=== PATIENT | male | born 1945 ===

== ENCOUNTER 2020-07-02 06:00 | Outpatient (RCR) | payer MEDICARE, SELFPAY | END 2020-07-08 23:59 | disposition home or self-care (01) | LOC: GPT 06:00 | PROVIDERS: PCP Family Medicine; Referring Provider Nurse Practitioner Family; Visit Provider Nurse Practitioner Family | DX: Z48.89 Encounter for other specified surgical aftercare (principal) | CPT/HCPCS: 97110; 97161; 97530 ==

== ENCOUNTER 2020-07-09 06:00 | Outpatient (RCR) | payer MEDICARE, SELFPAY | END 2020-08-08 23:59 | disposition home or self-care (01) | LOC: GPT 06:00 | PROVIDERS: PCP Family Medicine; Referring Provider Nurse Practitioner Family; Visit Provider Nurse Practitioner Family | DX: Z48.89 Encounter for other specified surgical aftercare (principal) | CPT/HCPCS: 97110; 97140; 97530 ==